=== PATIENT | female | born 1930 | race Caucasian/White ===

== ENCOUNTER → 2016-12-28 | Outpatient (CLI) | payer MEDICARE, OTHER | END | disposition home or self-care (01) | LOC: EDUNIT# → ROC 12:53 | PROVIDERS: ATTEND Radiology Radiation Oncology | DX: C34.32 Malignant neoplasm of lower lobe, left bronchus or lung (principal) | CPT/HCPCS: G0463 ==

== ENCOUNTER → 2017-07-15 | Outpatient (CLI) | payer MEDICARE, OTHER | END | disposition home or self-care (01) | LOC: ROC 12:44 | PROVIDERS: ATTEND Radiology Radiation Oncology | DX: C34.32 Malignant neoplasm of lower lobe, left bronchus or lung (principal) | CPT/HCPCS: G0463 ==